=== PATIENT | male | born 1945 | race American Indian/Alaskan Native ===

== ENCOUNTER 2022-08-03 11:04 | Day surgery (SDC) | payer OTHER ==
[~2022-08-03 11:04] MED LIST: LACTATED RINGERS 1,000 ML IV SCH
[2022-08-03 12:21] LABS: Hematocrit 41.8 % (35.5-45.6); Hemoglobin 13.9 gm/dl (11.8-15.2); Mean Corpuscular HGB Conc 33 % (32-34); Mean Corpuscular Volume 98 fl (84-94); Platelet Count 157 K/mm3 (140-440); Red Blood Count 4.26 M/mm3 (3.65-5.03); Red Cell Distribution Width 15.6 % (13.2-15.2)
[2022-08-03 12:31] LABS: INR 1.08 (0.87-1.13)
[2022-08-03 12:38] LABS: BUN/Creatinine Ratio 18; Blood Urea Nitrogen 21 mg/dL (9-20); Calcium 9.7 mg/dL (8.4-10.2); Hemolysis Index 7
[2022-08-03] MEDS ORDERED: ceFAZolin/Water 2 GM/20 ML 2 GM/20 ML SYRINGE IV ONE (13:01)
[2022-08-03] MEDS ORDERED: fentaNYL 100 MCG/2 ML INJ IV PRN (13:10)
[2022-08-03] MEDS ORDERED: ONDANSETRON 4 MG/2 ML INJ IV PRN (13:10)
[2022-08-03] MEDS ORDERED: HYDROcodone/ACETAMINOPHEN 5-325 MG TAB PO PRN (13:10)
--- NOTE | 2022-08-03 13:10 | Anesthesia Day of Surgery ---
Anesthesia Day of Surgery - Day of Surgery Patient Examined: Yes Patient H&P Reviewed: Yes Patient is NPO: Yes Beta Blockers: Yes (metoprolol today AM)
--- NOTE | 2022-08-03 13:10 | Anesthesia Consultation ---
Anesthesia Consult and Med Hx Date of service: 08/03/22 - Airway Anesthetic Teeth Evaluation: Good, Partials (lower) ROM Head & Neck: Adequate Mental/Hyoid Distance: Adequate Mallampati Class: Class III Intubation Access Assessment: Possibly Difficult - Pre-Operative Health Status ASA Pre-Surgery Classification: ASA3 Proposed Anesthetic Plan: General - Pulmonary Hx Smoking: No (former smoker quit 40yrs ago) Hx Respiratory Symptoms: No Hx Sleep Apnea: Yes (no CPAP) - Cardiovascular System Hx Hypertension: Yes (took nifedipine this morning) Hx Heart Attack/AMI: Yes (1995; took metoprolol this morning) Hx Percutaneous Transluminal Coronary Angioplasty (PTCA): No (CABG 2004, no hx CHF; off ASA/plvix 5-6 days) Hx Peripheral Vascular Disease: No (hx DVT/PE in 2004; off coumadin 5-6 days) - Central Nervous System CVA: No Hx Psychiatric Problems: Yes (PTSD) - Endocrine Hx Renal Disease: No Hx Liver Disease: No Hx Insulin Dependent Diabetes: No Hx Non-Insulin Dependent Diabetes: No Hx Thyroid Disease: No - Other Systems Hx Obesity: Yes (BMI 37) - Additional Comments Anesthesia Medical History Comments: No hx anesthetic complications. Most recent cardiology notes on chart reviewed.
[2022-08-03] MEDS ORDERED: propofoL 200 MG/20 ML VIAL IV ONE (14:46)
[2022-08-03] MEDS ORDERED: HYDROmorphone 1 MG/1 ML INJ ONE (14:46)
[2022-08-03] MEDS ORDERED: LIDOCAINE MPF (2%) 20 MG/1 ML VIAL 5 ML ONE (15:14)
[2022-08-03] MEDS ORDERED: ePHEDrine SULFATE 50 MG/1 ML INJ ONE (15:14)
[2022-08-03] MEDS ORDERED: IOHEXOL 300 MG/ML 50ML IV ONE (15:26)
[2022-08-03] MEDS ORDERED: WATER FOR IRRIG STERILE 2000 ML IR ONE (15:28)
--- NOTE | 2022-08-03 16:05 | Operative Report ---
DATE OF SURGERY: 08/03/2022 PREOPERATIVE DIAGNOSIS: Abnormal cytology. POSTOPERATIVE DIAGNOSIS: Abnormal cytology. PROCEDURES: Cystoscopy, biopsies, retrograde. SURGEON: Antony Loredo MD ANESTHESIA: General. FINDINGS: This is a gentleman who has had a history of radiation and some hematuria. He had some erythema, posterior wall of the bladder for biopsies. He has had 2 abnormal cells on FISH and a previous smoker. DESCRIPTION OF PROCEDURE: The patient was brought to the operating room and placed on the operating table. Following induction of anesthesia, placed in lithotomy position, prepped and draped in usual sterile fashion. Cystourethroscopy showed an open bladder neck. There was some erythema, posterior wall. This was biopsied. Retrograde showed small orifices delicate collecting system. No catheter was left. The area was cauterized. The patient tolerated the procedure well. Good drainage bilaterally. Delicate collecting system, no gross hematuria from either orifice, brought to the recovery room without a catheter in stable condition. TID: [id number] RECEIPT: [id number] NAN/ELIZABETH
--- NOTE | 2022-08-03 16:14 | Post Operative Note ---
Date of procedure: 08/03/22 Pre-op diagnosis: heme Post-op diagnosis: same Procedure: cysto biopsies rpgs Anesthesia: GETA Surgeon: MICHAEL ESCALANTE Estimated blood loss: none Pathology: list (bladder) Specimen disposition: to lab Condition: stable Disposition: PACU
--- NOTE | 2022-08-03 16:15 | Discharge Summary ---
Short Stay Discharge Plan Activity: other (no streraining ) Weight Bearing Status: Full Weight Bearing Diet: low fat, low cholesterol, low salt Durable Medical Equipment Needed Upon Discharge: other (inc fluids ) Follow up with: [facility] [Primary Care Provider] - 7 Days MICHAEL ESCALANTE MD [Staff Physician] - 7 Days
[2022-08-03 17:14] VITALS: BP 111/49
--- NOTE | 2022-08-03 17:52 | Fluoroscopy Report ---
FL retrograde urography Technique: Intraoperative fluoroscopic guidance was provided. Fluoroscopy time: 0.2 minutes. Fluoroscopy images: 5. Findings/Impression: Intraoperative fluoroscopic guidance for retrograde pyelograms. Please see proce dure report for further details. Signer Name: Mariano Mcintosh MD Signed: 08/03/2022 5:47 PM Workstation Name: [email or web address]
== END 2022-08-03 17:30 | disposition home or self-care (01) ==
LOC: OR 11:04
PROVIDERS: ATTEND Urology
DX: R94.8 Abnormal results of function studies of other organs and systems (principal); E78.00 Pure hypercholesterolemia, unspecified; I10 Essential (primary) hypertension; G47.30 Sleep apnea, unspecified; M10.9 Gout, unspecified; F32.9 Major depressive disorder, single episode, unspecified; F41.9 Anxiety disorder, unspecified; I27.89 Other specified pulmonary heart diseases; D64.9 Anemia, unspecified; Z88.8 Allergy status to other drugs, medicaments and biological substances; Z79.899 Other long term (current) drug therapy; Z79.01 Long term (current) use of anticoagulants; Z79.82 Long term (current) use of aspirin; Z87.891 Personal history of nicotine dependence; Z95.1 Presence of aortocoronary bypass graft; Z86.718 Personal history of other venous thrombosis and embolism; Z85.46 Personal history of malignant neoplasm of prostate; Z87.440 Personal history of urinary (tract) infections; Z98.890 Other specified postprocedural states
CPT/HCPCS: 36415; 52204; 74420; 80048; 85027; 85610; 85730; 88305; C1758; J0690; J1170; J2704; J3490; J7120; Q9967